=== PATIENT | female | born 1990 | race African-American/Black ===

== ENCOUNTER 2017-03-18 16:50 | Emergency (ER) | payer OTHER ==
[~2017-03-18] VITALS: Ht 152.4 cm; Wt 52.5 kg
[2017-03-18 17:10] VITALS: BP 113/68
== END 2017-03-18 18:20 | disposition left against medical advice (07) ==
LOC: ER 17:50
DX: H57.13 Ocular pain, bilateral (principal); Z53.21 Procedure and treatment not carried out due to patient leaving prior to being seen by health care provider

== ENCOUNTER 2017-12-16 12:33 | Observation (INO) | payer MEDICAID, OTHER ==
[~2017-12-16] VITALS: Ht 152.4 cm; Wt 65.8 kg
[2017-12-16] MEDS ORDERED: ACETAMINOPHEN 500MG TABLET PO ONE (13:15)
== END 2017-12-16 13:57 | disposition home or self-care (01) ==
LOC: L&D 12:33
PROVIDERS: ADMIT Obstetrics & Gynecology; ATTEND Obstetrics & Gynecology
DX: O26.893 Other specified pregnancy related conditions, third trimester (principal); R10.9 Unspecified abdominal pain; Z3A.31 31 weeks gestation of pregnancy
CPT/HCPCS: 99281; G0378